=== PATIENT | male | born 1985 | race Caucasian/White ===

== ENCOUNTER 2020-01-01 15:17 | Emergency (ER) | payer SELFPAY ==
[2020-01-01] MEDS ORDERED: Bacitracin 1 PK ONE (15:55)
== END 2020-01-01 16:20 | disposition home or self-care (01) ==
LOC: NAV ERS 15:17
DX: S80.211A Abrasion, right knee, initial encounter (principal); I10 Essential (primary) hypertension; F17.210 Nicotine dependence, cigarettes, uncomplicated; W01.0XXA Fall on same level from slipping, tripping and stumbling without subsequent striking against object, initial encounter
CPT/HCPCS: 99283